=== PATIENT | female | born 1950 | race Caucasian/White ===

== ENCOUNTER → 2020-03-14 18:10 | Outpatient (CLI) | payer MEDICARE, BC ==
[2020-03-14 18:14] LABS: BASOPHILS 0.5 % (0-2); EOSINOPHILS 2.2 % (0-7); HEMATOCRIT 33.9 % (36.0-48.0); HEMOGLOBIN 10.2 g/dL (12-16); LYMPHOCYTES 24.7 % (15-50); MCH 28.8 pg (26.0-34.0); MCHC 30.1 g/dL (31.0-37.0); MCV 95.8 fL (80.0-100.0); MEAN PLATELET VOLUME 10.8 fL (7.4-10.4); MONOCYTES 6.5 % (2-11); NEUTROPHILS 66.1 % (40-80); RBC 3.54 10x6/uL (4.00-5.40); RDW 16.1 % (11.5-14.5)
[2020-03-14 18:16] LABS: PLATELET COUNT 47 10x3/uL (130-400); WBC 1.9 10x3/uL (4.8-10.8)
== END | disposition home or self-care (01) ==
LOC: D.LABREF 18:10
PROVIDERS: ATTEND Legal Medicine
DX: C94.6 Myelodysplastic disease, not elsewhere classified (principal)

== ENCOUNTER 2020-03-24 15:14 | Outpatient (CLI) | payer MEDICARE, BC ==
[~2020-03-24] VITALS: Ht 175.3 cm; Wt 63.6 kg
[2020-03-24 17:16] VITALS: BP 156/82; Ht 175.3 cm; Wt 63.6 kg
[2020-03-24 18:39] LABS: HEMATOCRIT 26.7 % (36.0-48.0); HEMOGLOBIN 8.4 g/dL (12-16); MCH 28.1 pg (26.0-34.0); MCHC 31.5 g/dL (31.0-37.0); MCV 89.3 fL (80.0-100.0); MEAN PLATELET VOLUME 9.3 fL (7.4-10.4); RBC 2.99 10x6/uL (4.00-5.40); RDW 15.4 % (11.5-14.5); WBC 2.4 10x3/uL (4.8-10.8)
[2020-03-24 18:43] LABS: PLATELET COUNT 64 10x3/uL (130-400)
[2020-03-24 21:47] LABS: EOSINOPHILS 7 % (0-7); LYMPHOCYTES 10 % (15-50); NEUTROPHILS 82 % (40-80); PLATELET ESTIMATE DECREASED
== END 2020-03-24 18:25 | disposition home or self-care (01) ==
LOC: D.OPS 15:14
PROVIDERS: ATTEND Legal Medicine
DX: D69.6 Thrombocytopenia, unspecified (principal); D75.81 Myelofibrosis; D61.818 Other pancytopenia; H35.60 Retinal hemorrhage, unspecified eye